=== PATIENT | male | born 1990 | race Two or more races ===

== ENCOUNTER 2018-09-09 14:14 | Emergency (ER) | payer OTHER ==
[~2018-09-09] VITALS: Ht 165.1 cm; Wt 69.9 kg
[~2018-09-09 14:14] MED LIST: AMOX500C PO
[2018-09-09 15:00] VITALS: BP 117/73
--- NOTE | 2018-09-09 15:53 | RAD ---
Chest, PA and Lateral: Technique: PA and lateral views of the chest were obtained. History: Cough fever congestion. Comparison: None. Findings: The heart and pulmonary vasculature appear within normal limits. The lungs are clear. The pleural margins are clear. Impression: No acute chest process is seen. Electronically signed by: Remberto Fernandez MD (09/09/2018 3:50 PM) [id number]
[2018-09-09 15:59] LABS: INFLUENZA A PATIENT POSITIVE (NEGATIVE); INFLUENZA B PATIENT NEGATIVE (NEGATIVE)
[2018-09-09] MEDS ORDERED: OSEL75CA PO (16:08)
[2018-09-09] MEDS ORDERED: IBUP-1007 PO (16:08)
[2018-09-09] MEDS ORDERED: ACET325T9 PO (16:08)
--- NOTE | 2018-09-09 16:09 | PHYS DOC ---
Past Medical History Past Medical History: No Pertinent History (АЛЕКСАНДР,SKYLER PUBLIC SERVICE REPRESENTATIVE) Past Surgical History: No Surgical History (АЛЕКСАНДР,SKYLER PUBLIC SERVICE REPRESENTATIVE) Alcohol Use: Occasionally Drug Use: None (АЛЕКСАНДР,SKYLER PUBLIC SERVICE REPRESENTATIVE) Adult General Chief Complaint Chief Complaint: FEVER HPI HPI Patient is a 28 year old Medrol Dosepak and medical history who presents to the ED today complaining of cough, sneezing, nasal congestion, symptoms for 2 days. Also complaining of subjective fevers. (OLIMPIASKYLER MARIO PUBLIC SERVICE REPRESENTATIVE) Review of Systems Review of Systems Constitutional: Reports subjective fevers Eyes: Denies change in visual acuity, redness, or eye pain [] HENT: Reports nasal congestion, denies sore throat [] Respiratory: Reports cough, denies shortness of breath [] Cardiovascular: No additional information not addressed in HPI [] GI: Denies abdominal pain, nausea, vomiting, bloody stools or diarrhea [] : Denies dysuria or hematuria [] Musculoskeletal: Denies back pain or joint pain [] Integument: Denies rash or skin lesions [] Neurologic: Denies headache, focal weakness or sensory changes [] All other systems were reviewed and found to be within normal limits, except as documented in this note. (SKYLER FOUNTAIN PUBLIC SERVICE REPRESENTATIVE) Allergies Allergies Allergies Coded Allergies Type Severity Reaction Last Updated Verified No Known Drug Allergies 02/17/18 No (JONAS ORDOÑEZ MD) Physical Exam Physical Exam Constitutional: Well developed, well nourished, no acute distress, non-toxic appearance. [] HENT: Normocephalic, atraumatic, bilateral external ears normal, oropharynx moist, no oral exudates, nose normal. [] Eyes: PERRLA, EOMI, conjunctiva normal, no discharge. [] Neck: Normal range of motion, no tenderness, supple, no stridor. [] Cardiovascular:Heart rate regular rhythm, no murmur [] Lungs & Thorax: Bilateral breath sounds clear to auscultation [] Abdomen: Bowel sounds normal, soft, no tenderness, no masses, no pulsatile masses. [] Skin: Warm, dry, no erythema, no rash. [] Back: No tenderness, no CVA tenderness. [] Extremities: No tenderness, no cyanosis, no clubbing, ROM intact, no edema. [] Neurologic: Alert and oriented X 3, normal motor function, normal sensory function, no focal deficits noted. [] Psychologic: Affect normal, judgement normal, mood normal. [] (SKYLER FOUNTAIN APRN) Current Patient Data Vital Signs Vital Signs Date Time Temp Pulse Resp B/P (MAP) Pulse Ox O2 Delivery O2 Flow Rate FiO2 09/09/18 15:00 97.7 86 16 117/73 (88) 100 Room Air 97.7 (JONAS ORDOÑEZ MD) Lab Values Laboratory Tests Test 09/09/18 15:10 Influenza Type A Antigen Positive (NEGATIVE) Influenza Type B Antigen Negative (NEGATIVE) (JONAS ORDOÑEZ MD) EKG EKG [] (SKYLER FOUNTAIN APRN) Radiology/Procedures Radiology/Procedures [] (SKYLER FOUNTAIN APRN) Course & Med Decision Making Course & Med Decision Making Pertinent Labs and Imaging studies reviewed. (See chart for details) This is a 28-year-old male patient presenting to the ED today with subjective fevers, coughs sneezing and nasal congestion for 2 days. Positive for influenza A, negative influenza B. Chest x-ray is negative for any acute findings. Patient discharged on Tamiflu. OTC pain relievers. Follow-up with PCP in 1-2 weeks. (SKYLER FOUNTAIN APRN) Course & Med Decision Making Staff Physician Addendum: I was working in the ER during the course of this patient's visit. I was available for consultation as needed, but I was not directly involved in the care of this patient. (JONAS ORDOÑEZ MD) Dragon Disclaimer Dragon Disclaimer This electronic medical record was generated, in whole or in part, using a voice recognition dictation system. (SKYLER FOUNTAIN APRN) Departure Departure Impression: Primary Impression: Influenza A Additional Impression: Cough Disposition: 01 HOME, SELF-CARE Condition: STABLE Referrals: NO PCP (PCP) follow up with your doctor in 1-2 weeks Patient Instructions: Cough, Adult, Influenza A (H1N1) Additional Instructions: Your positive for influenza A. We put you on Tamiflu. Ensure you complete it. Take Tylenol every 4 hours and Motrin every 6 hours as needed for fever. Push fluids, rest, maintain good hand hygiene. Follow-up with your doctor in one week Scripts Ibuprofen (IBUPROFEN) 600 Mg Tablet 600 MG PO PRN Q6HRS PRN for INFLAMMATION, #20 TAB Prov: SKYLER FOUNTAIN APRN 09/09/18 Acetaminophen (TYLENOL) 325 Mg Tablet 1-2 TAB PO QID, #60 TAB 2 Refills Prov: SKYLER FOUNTAIN APRN 09/09/18 Oseltamivir Phosphate (TAMIFLU) 75 Mg Capsule 1 CAP PO BID, #10 CAP Prov: SKYLER FOUNTAIN APRN 09/09/18 Problem Qualifiers SKYLER FOUNTAIN APRN Sep 09, 2018 16:08 JONAS ORDOÑEZ MD Sep 09, 2018 17:33
== END 2018-09-09 16:21 | disposition home or self-care (01) ==
LOC: ER 14:14
DX: J10.1 Influenza due to other identified influenza virus with other respiratory manifestations (principal)
CPT/HCPCS: 71046; 87804; 99284